=== PATIENT | female | born 1965 | race Caucasian/White ===

== ENCOUNTER → 2016-08-12 | Outpatient (CLI) | payer OTHER ==
--- NOTE | 2016-08-12 14:56 | DX ---
Abdomen, Single View at 1401 Hours Indication: Low abdominal pain. Evaluate for toxic megacolon. Comparison: None. Findings: Moderate volume of retained stool throughout the right and left hemicolon. No dilated loops of small or large bowel. No mass effect. Several benign phleboliths are scattered throughout the low pelvis. Lumbar spine has mild levocurvature potentially due to positioning. Impression: 1. Mild constipation. 2. No toxic megacolon or evidence of bowel obstruction. The results were communicated via the phone to Nina, the front end developer designer for Dr. Jaiden lawrence after study completion.
== END ==
LOC: BMCIMAGING 13:34
PROVIDERS: ATTEND Allergy & Immunology Allergy
DX: K59.00 Constipation, unspecified (principal)

== ENCOUNTER → 2017-01-20 | Outpatient (CLI) | payer OTHER | LOC: FIMAGING 07:58 | PROVIDERS: ATTEND Internal Medicine Gastroenterology | DX: R93.3 Abnormal findings on diagnostic imaging of other parts of digestive tract (principal) | CPT/HCPCS: 78264; A9541 ==

== ENCOUNTER → 2017-04-05 | Outpatient (CLI) | payer OTHER | LOC: FIMAGING 14:38 | PROVIDERS: ATTEND Surgery | DX: Z12.31 Encounter for screening mammogram for malignant neoplasm of breast (principal) | CPT/HCPCS: G0202 ==

== ENCOUNTER → 2018-05-13 | Outpatient (CLI) | payer OTHER | LOC: FIMAGING 10:20 | PROVIDERS: ATTEND Obstetrics & Gynecology | DX: Z12.31 Encounter for screening mammogram for malignant neoplasm of breast (principal) ==